=== PATIENT | female | born 1985 | race Caucasian/White ===

== ENCOUNTER 2018-08-11 14:39 | Emergency (ER) | payer SELFPAY ==
[2018-08-11 15:47] LABS: Hematocrit 35.6 % (30.3-42.9); Mean Corpuscular HGB Conc 34 % (30-34); Mean Corpuscular Hemoglobin 27 pg (28-32); Mean Corpuscular Volume 81 fl (79-97); Platelet Count 304 K/mm3 (140-440); Red Blood Count 4.41 M/mm3 (3.65-5.03); Red Cell Distribution Width 14.7 % (13.2-15.2)
[2018-08-11 16:08] LABS: BUN/Creatinine Ratio 17; Blood Urea Nitrogen 10 mg/dL (7-17); Calcium 9.4 mg/dL (8.4-10.2); Hemolysis Index 10
[2018-08-11] MEDS ORDERED: TYLENOL PO ONE (16:24)
--- NOTE | 2018-08-11 16:30 | Emergency Department Report ---
<RADHA ROE - Last Filed: 08/11/18 16:26> ED Female HPI - General Chief complaint: Urogenital-Female Stated complaint: /SPOTTING Time Seen by Provider: 08/11/18 16:16 Source: patient Mode of arrival: Ambulatory Limitations: No Limitations - History of Present Illness Initial comments: Mrs. Bowie is here with her male significant other. She presents with vaginal bleeding pelvic cramping. She is approximately 8 weeks , LMP May [id number]. She is [place]. She speaks Creole and [place] Islander. Her partner provided interpretation. Last night she developed spotting with less than menstrual flow. She changed 2 pads over the course of the day. Mild lower back pain. Without citizenship, she is unable to obtain Medicaid or health insurance. MD Complaint: vaginal bleeding -: Gradual Severity: mild Quality: cramping Improves with: none Worsens with: none Are you Now?: Yes Last Menstrual Period: 06/16/18 EDC: 03/23/19 Associated Symptoms: vaginal bleeding - Related Data : 3 Para: 1 A: 1 Previous Rx's Medication Instructions Recorded Last Taken Type Acetaminophen [Tylenol] 325 mg PO Q6H PRN #30 capsule 08/11/18 Unknown Rx 21/Iron Fu/Folic Acid 1 each PO DAILY #30 tablet 08/11/18 Unknown Rx [ Complete Caplet] Allergies Allergy/AdvReac Type Severity Reaction Status Date / Time No Known Allergies Allergy Unverified 08/11/18 15:00 ED Review of Systems ROS: Stated complaint: /SPOTTING Other details as noted in HPI Comment: All other systems reviewed and negative Constitutional: denies: fever, malaise Respiratory: denies: cough Cardiovascular: denies: chest pain ED Past Medical Hx - Past Medical History Previous Medical History?: No - Surgical History Past Surgical History?: No - Social History Smoking Status: Never Smoker Substance Use Type: None - Medications Home Medications: Home Medications Medication Instructions Recorded Confirmed Last Taken Type Acetaminophen [Tylenol] 325 mg PO Q6H PRN #30 capsule 08/11/18 Unknown Rx 21/Iron Fu/Folic Acid 1 each PO DAILY #30 tablet 08/11/18 Unknown Rx [ Complete Caplet] ED Physical Exam - General Limitations: No Limitations General appearance: alert, in no apparent distress, other (appears comfortable) - Head Head exam: Present: atraumatic, normocephalic - Eye Eye exam: Present: normal appearance - ENT ENT exam: Present: mucous membranes moist - Neck Neck exam: Present: normal inspection. Absent: tenderness, meningismus - Respiratory Respiratory exam: Present: normal lung sounds bilaterally. Absent: respiratory distress, wheezes, rales, rhonchi - Cardiovascular Cardiovascular Exam: Present: regular rate, normal rhythm, normal heart sounds. Absent: systolic murmur, diastolic murmur, rubs, gallop - GI/Abdominal GI/Abdominal exam: Present: soft, normal bowel sounds. Absent: distended, tenderness, guarding, rebound - Extremities Exam Extremities exam: Present: normal inspection - Back Exam Back exam: Present: normal inspection - Neurological Exam Neurological exam: Present: alert, oriented X3 - Psychiatric Psychiatric exam: Present: normal affect, normal mood - Skin Skin exam: Present: warm, dry, intact, normal color. Absent: rash ED Course Vital Signs 08/11/18 14:56 Temperature 98.1 F Pulse Rate 70 Respiratory 18 Rate Blood Pressure 113/58 O2 Sat by Pulse 100 Oximetry ED Medical Decision Making - Lab Data Result diagrams: 08/11/18 15:29 08/11/18 15:29 Laboratory Results - last 24 hr 08/11/18 08/11/18 08/11/18 13:25 15:29 15:29 WBC 8.0 RBC 4.41 Hgb 12.0 Hct 35.6 MCV 81 MCH 27 L MCHC 34 RDW 14.7 Plt Count 304 Sodium 137 Potassium 4.6 Chloride 103.3 Carbon Dioxide 22 Anion Gap 16 BUN 10 Creatinine 0.6 L Estimated GFR > 60 BUN/Creatinine Ratio 17 Glucose 88 Calcium 9.4 HCG, Quant 7723 H Blood Type 08/11/18 15:29 WBC RBC Hgb Hct MCV MCH MCHC RDW Plt Count Sodium Potassium Chloride Carbon Dioxide Anion Gap BUN Creatinine Estimated GFR BUN/Creatinine Ratio Glucose Calcium HCG, Quant Blood Type A POSITIVE - Medical Decision Making Mrs. Bowie presents with vaginal spotting mild back pain pelvic cramping. Differential diagnosis includes ectopic versus threatened miscarriage Her blood type is Rh+ Critical care attestation.: If time is entered above; I have spent that time in minutes in the direct care of this critically ill patient, excluding procedure time. ED Disposition Clinical Impression: Threatened miscarriage Disposition: DC- TO HOME OR SELFCARE Condition: Stable Instructions: Threatened Miscarriage (ED), Ectopic (ED) Additional Instructions: Follow-up with [facility] [employer] [facility] in 2 days to follow up with a [employer]PER[facility] or to emergency room for a reevaluation of serum quantative test with possible ultrasound. Prescriptions: Acetaminophen [Tylenol] 325 mg PO Q6H PRN #30 capsule PRN Reason: Pain, Moderate (4-6) 21/Iron Fu/Folic Acid [ Complete Caplet] 1 each PO DAILY #30 tablet Referrals: PRIMARY CAREMD [Primary Care Provider] - 3-5 Days STEPHANIE SLADE MD [Staff Physician] - 3-[address] [facility] [Outside] - 3-5 Days [facility] [Outside] - 3-5 Days Forms: Work/School Release Form(ED) <JAROD NAJERA - Last Filed: 08/11/18 19:35> ED Medical Decision Making - Lab Data Result diagrams: 08/11/18 15:29 08/11/18 15:29 - Medical Decision Making This is a 33-year-old female presents with threatened miscarriage. Patient was signed out to me by Dr. Eliud V for a pending US report to r/o ectopic . US OB obtained and dictated by the radiologist. Ale Payan ( OBGYN) for possible ectopic and about US REPORT with lab results AND STATED PATIENT TO FOLLOW UP WITHIN 48 HOURS FOR A REPEAT HCG. Quantative serum test obtained. Patient notified of the US report with no questions noted by the patient. Patients is present during discharge instructions for translation purposes. Patient was instructed f/u with [facility] in 2 days to follow up with a [employer]PER[employer]OR or to emergency room for a reevaluation of serum quantative test with possible ultrasound. RH factor positive. Labs within normal limits. At time of discharge, the patient does not seem toxic or ill in appearance. No acute signs of distress noted. Patient agrees to discharge treatment plan of care. No further questions noted by the patient. ED Disposition Is pt being admited?: No Does the pt Need Aspirin: No
--- NOTE | 2018-08-11 18:07 | Ultrasound Report ---
FINAL REPORT EXAM: US OB < = 14 WK FETUS ADD GEST HISTORY: 8 weeks , vaginal spotting 3, para 1, quantitative beta HCG 7723, LMP 06/16/2018 TECHNIQUE: Transvesical and endovaginal pelvic sonographic imaging was performed. FINDINGS: The retroverted uterus measures 7.7 x 3.5 x 3.8 centimeters. Endometrial stripe measures 10.4 centimeters. There is no gestational sac identified within the endometrial stripe. Right ovary measures 3.2 x 1.9 x 2.5 centimeters, within normal limits. Normal color flow. Left ovary measures 3.8 x 2.2 x 3.4 centimeters with an adjacent 2.1 centimeter complex cystic structure. Normal color flow. No ring of fire. Both ovaries demonstrate small follicles. There is no free pelvic fluid. IMPRESSION: No definite intrauterine gestation identified. Retroverted uterus. 10.4 millimeter endometrial stripe thickness. Complex left ovarian 2.1 centimeter cystic lesion without ring of fire. Ectopic cannot be excluded. Bilateral ovarian follicles. No free pelvic fluid. Recommend correlating with physical exam and short interval follow-up beta HCG and pelvic ultrasound 3-5 days.
--- NOTE | 2018-08-11 18:10 | Ultrasound Report ---
FINAL REPORT EXAM: US OB TRANSVAGINAL HISTORY: 8 weeks , vaginal spotting TECHNIQUE: FINDINGS: The retroverted uterus measures 7.7 x 3.5 x 3.8 centimeters. Endometrial stripe measures 10.4 centimeters. There is no gestational sac identified within the endometrial stripe. Right ovary measures 3.2 x 1.9 x 2.5 centimeters, within normal limits. Normal color flow. Left ovary measures 3.8 x 2.2 x 3.4 centimeters with an adjacent 2.1 centimeter complex cystic structure. Normal color flow. No ring of fire. Both ovaries demonstrate small follicles. There is no free pelvic fluid. IMPRESSION: No definite intrauterine gestation identified. Retroverted uterus. 10.4 millimeter endometrial stripe thickness. Complex left ovarian 2.1 centimeter cystic lesion without ring of fire. Ectopic cannot be excluded. Bilateral ovarian follicles. No free pelvic fluid. Recommend correlating with physical exam and short interval follow-up beta HCG and pelvic ultrasound 3-5 days. Critical level 2 result. Findings are called on 08/11/2018 at 1807 hours Eastern Standard time.
[2018-08-11] MEDS ORDERED: TYLENOL ONE (18:39)
[2018-08-11 20:15] VITALS: BP 124/67
== END 2018-08-11 20:30 | disposition home or self-care (01) ==
LOC: ED 14:39
DX: O20.0 Threatened abortion (principal); Z3A.08 8 weeks gestation of pregnancy
CPT/HCPCS: 36415; 76801; 76802; 76817; 80048; 84702; 85027; 86900; 86901; 99284

== ENCOUNTER 2018-08-13 19:05 | Emergency (ER) | payer SELFPAY ==
[2018-08-13 19:32] VITALS: BP 127/70
[2018-08-13 19:57] LABS: Basophils # (Auto) 0.1 K/mm3 (0.0-0.1); Basophils % (Auto) 0.9 % (0.0-1.8); Eosinophils # (Auto) 0.2 K/mm3 (0.0-0.4); Eosinophils % (Auto) 1.5 % (0.0-4.3); Hemoglobin 12.2 gm/dl (10.1-14.3); Lymphocytes # (Auto) 3.3 K/mm3 (1.2-5.4); Lymphocytes % (Auto) 29.2 % (13.4-35.0); Mean Corpuscular HGB Conc 32 % (30-34); Mean Corpuscular Volume 80 fl (79-97); Monocytes # (Auto) 0.8 K/mm3 (0.0-0.8); Monocytes % (Auto) 6.8 % (0.0-7.3); Platelet Count 325 K/mm3 (140-440); Red Blood Count 4.72 M/mm3 (3.65-5.03); Red Cell Distribution Width 14.7 % (13.2-15.2)
[2018-08-13 20:25] LABS: Mean Corpuscular Hemoglobin 26 pg (28-32)
== END 2018-08-13 23:10 ==
LOC: ED 19:05
DX: O26.891 Other specified pregnancy related conditions, first trimester (principal); O20.8 Other hemorrhage in early pregnancy; Z53.21 Procedure and treatment not carried out due to patient leaving prior to being seen by health care provider
CPT/HCPCS: 36415; 84702; 85025; 86850; 86900; 86901